=== PATIENT | male | born 1980 | race Caucasian/White ===

== ENCOUNTER 2018-11-04 10:39 | Day surgery (SDC) | payer OTHER ==
[~2018-11-04 10:39] MED LIST: LACTATED RINGERS 1,000 ML IV SCH; LIDOCAINE 1% 20 ML VIAL (10MG/ML) FOR IV START INTRADERMA PRN
[2018-11-04 11:11] VITALS: TEMP 98.2
[2018-11-04] MEDS ORDERED: LACTATED RINGERS 1,000 ML IV ONE (11:16)
[2018-11-04] MEDS ORDERED: PROPOFOL 10 MG/ML 20 ML VIAL IV ONE (11:44)
--- NOTE | 2018-11-04 11:54 | P.GSHP ---
History of Present Illness H&P Date: 11/04/18 Chief Complaint: Hemorrhoids, family history colon cancer This is a 38-year-old male who presents today for colonoscopy. Patient history of hemorrhoids. He has a strong family history colon cancer. Past Medical History Past Medical History: GERD/Reflux Additional Past Medical History / Comment(s): past hx. hiatal hernia. History of Any Multi-Drug Resistant Organisms: None Reported Past Surgical History: Adenoidectomy, Tonsillectomy Additional Past Surgical History / Comment(s): DEVIATED SEPTUM SURG, EGD, Norbert fundoplasty 2014 Past Anesthesia/Blood Transfusion Reactions: Motion Sickness Past Psychological History: Anxiety Smoking Status: Never smoker Past Alcohol Use History: Occasional Past Drug Use History: None Reported - Past Family History Father Family Medical History: No Reported History Medications and Allergies Home Medications Medication Instructions Recorded Confirmed Type Ascorbic Acid [Vitamin C] 500 mg PO DAILY 03/08/15 11/04/18 History Cholecalciferol [Vitamin D3] 1,000 unit PO DAILY 03/08/15 11/04/18 History Multivitamin [Men's Multi-Vitamin] 1 each PO DAILY 03/08/15 10/30/18 History [place]-3 Fatty Acids/Fish Oil [Fish 1 each PO DAILY 03/08/15 11/04/18 History Oil 1,000 mg Softgel] ALPRAZolam [Xanax] 0.5 mg PO DAILY PRN 10/30/18 11/04/18 History Escitalopram [Lexapro] 10 mg PO BID 10/30/18 11/04/18 History Allergies Allergy/AdvReac Type Severity Reaction Status Date / Time ciprofloxacin AdvReac AGGRAVATED Verified 11/04/18 11:04 ACHILLES TENDON Surgical - Exam Vital Signs Temp Pulse Resp BP Pulse Ox 98.2 F 75 18 130/86 98 11/04/18 11:09 11/04/18 11:09 11/04/18 11:09 11/04/18 11:09 11/04/18 11:09 - General well developed, well nourished, no distress - Eyes PERRL - ENT normal pinna - Neck no masses - Respiratory normal expansion - Cardiovascular Rhythm: regular - Abdomen Abdomen: soft, non tender Assessment and Plan Assessment: Hemorrhoids Family history: Cancer We'll perform colonoscopy.
--- NOTE | 2018-11-04 12:09 | P.OP ---
Date of Procedure: 11/04/18 Preoperative Diagnosis: External hemorrhoids Postoperative Diagnosis: External hemorrhoids Procedure(s) Performed: Colonoscopy Anesthesia: MAC Surgeon: Rao Vivar Pathology: none sent Condition: stable Disposition: PACU Description of Procedure: PROCEDURE: The patient was placed on the endoscopy table in the lateral position. Digital rectal examination was performed which revealed external hemorrhoids. The prostate was symmetrical without nodules. Flexible colonoscope was then placed in the patient's anus and passed throughout the entire colon. The ileocecal valve was visualized. The cecum, ascending, transverse, descending and sigmoid colon were normal. The rectum was normal as well. There were no masses, polyps or diverticula noted in the entire colon.
[2018-11-04 12:18] VITALS: RESP 16
[2018-11-04 12:44] VITALS: BP 118/81; PULSE 70
== END 2018-11-04 13:00 | disposition home or self-care (01) ==
LOC: ORWHC2ENDO 10:39
PROVIDERS: ATTEND Surgery
DX: K64.4 Residual hemorrhoidal skin tags (principal); Z80.0 Family history of malignant neoplasm of digestive organs; K21.9 Gastro-esophageal reflux disease without esophagitis; F41.9 Anxiety disorder, unspecified; F32.9 Major depressive disorder, single episode, unspecified; Z79.899 Other long term (current) drug therapy; Z88.1 Allergy status to other antibiotic agents; Z90.89 Acquired absence of other organs; Z98.890 Other specified postprocedural states
CPT/HCPCS: 45378; J2704

== ENCOUNTER 2023-01-08 14:34 | Emergency (ER) | payer BC ==
--- NOTE | 2023-01-08 15:12 | ED ---
URI HPI - General Source: patient, RN notes reviewed Mode of arrival: ambulatory Limitations: no limitations <Missael Olivares - Last Filed: 01/08/23 15:11> <Janette Gill - Last Filed: 01/08/23 18:35> - General Chief Complaint: Upper Respiratory Infection Stated Complaint: covid+-sore throat Time Seen by Provider: 01/08/23 15:11 - History of Present Illness Initial Comments: 42-year-old male presents emergency Department chief complaint cough congestion. Patient states he tested positive for COVID-19 Friday. Patient states he has productive cough, sore throat, nasal congestion. Patient states he is having increasing chest congestion in which his PCP advised him come emergency department. (Missael Olivares) 42-year-old gentleman with a history of flulike symptoms. Patient complains of a sore throat, cough and congestion. States it started 3 days ago. He tested positive for Covid at home today. Patient states he is coughing up brown sputum and has brown nasal congestion as well. Was told to come to the emergency room by the PCP. He denies any chest pain or shortness breath. Denies any vomiting, diarrhea and has had intermittent fever. He is a nonsmoker. (Janette Gill) - Related Data Home Medications Medication Instructions Recorded Confirmed Ascorbic Acid [Vitamin C] 500 mg PO DAILY 03/08/15 11/04/18 Cholecalciferol [Vitamin D3] 1,000 unit PO DAILY 03/08/15 11/04/18 Multivitamin [Men's Multi-Vitamin] 1 each PO DAILY 03/08/15 10/30/18 [place]-3 Fatty Acids/Fish Oil [Fish 1 each PO DAILY 03/08/15 11/04/18 Oil 1,000 mg Softgel] ALPRAZolam [Xanax] 0.5 mg PO DAILY PRN 10/30/18 11/04/18 Escitalopram [Lexapro] 10 mg PO BID 10/30/18 11/04/18 Previous Rx's Medication Instructions Recorded Nirmatrelvir/Ritonavir [Paxlovid See Rx Instructions .ROUTE 01/08/23 2X150 mg-100 mg (Eua)] .COMPLEX #30 tab Phenol/Glycerin [Chloraseptic Max 2 sprays MUCOUS MEM Q4H PRN #118 ml 01/08/23 1.5-33% [place]] Allergies Allergy/AdvReac Type Severity Reaction Status Date / Time ciprofloxacin AdvReac AGGRAVATED Verified 11/04/18 11:04 ACHILLES TENDON Review of Systems ROS Other: All systems not noted in ROS Statement are negative. <Missael Olivares - Last Filed: 01/08/23 15:11> ROS Other: All systems not noted in ROS Statement are negative. <Janette Gill - Last Filed: 01/08/23 18:35> ROS Statement: Those systems with pertinent positive or pertinent negative responses have been documented in the HPI. Past Medical History Past Medical History: GERD/Reflux Additional Past Medical History / Comment(s): past hx. hiatal hernia. History of Any Multi-Drug Resistant Organisms: None Reported Past Surgical History: Adenoidectomy, Tonsillectomy Additional Past Surgical History / Comment(s): DEVIATED SEPTUM SURG, EGD, Norbert fundoplasty 2014 Past Anesthesia/Blood Transfusion Reactions: Motion Sickness Past Psychological History: Anxiety Past Alcohol Use History: Occasional Past Drug Use History: None Reported - Past Family History Father Family Medical History: No Reported History <EliseMissael Calix - Last Filed: 01/08/23 15:11> General Exam Limitations: no limitations <TerencemelvinMissael Calix - Last Filed: 01/08/23 15:11> Head exam: Present: atraumatic Eye exam: Present: normal appearance Pupils: Present: normal accommodation ENT exam: Present: mucous membranes moist, other (Mild fluid behind the TM, eustachian tube dysfunction. No significant erythema. Posterior pharynx erythema without any tonsillar swelling or exudates. No muffled speech or drooling. No sublingual swelling.) Neck exam: Present: normal inspection, other (No nuchal rigidity) Respiratory exam: Present: normal lung sounds bilaterally Cardiovascular Exam: Present: regular rate, normal rhythm Extremities exam: Present: full ROM Back exam: Present: full ROM Neurological exam: Present: alert, oriented X3, CN II-XII intact Psychiatric exam: Present: normal affect, normal mood Skin exam: Present: warm, dry <Janette Gill - Last Filed: 01/08/23 18:35> - General Exam Comments Initial Comments: Visual Physical Exam Vital signs reviewed General: Well-appearing, nontoxic, no acute distress. Head: Normocephalic, atraumatic Eyes: PERRLA, EOMI ENT: Airway patent Chest: Nonlabored breathing Skin: No visual rash, normal skin tone Neuro: Alert and oriented 3 Musculoskeletal: No gross abnormalities (Missael Olivares) Course <Janette Gill - Last Filed: 01/08/23 18:35> Vital Signs 01/08/23 14:44 Temperature 98.2 F Pulse Rate 72 Respiratory 20 Rate Blood Pressure 132/83 O2 Sat by Pulse 97 Oximetry - Reevaluation(s) Reevaluation #1: 01/08/23 18:21 The patient's well appearing in the emergency room. He is nontoxic appearing. He is in no respiratory distress and he is tolerating his secretions without limitations. Patient was given Decadron for the pain and inflammation of the throat. Discussed using a Chloraseptic states right to help alleviate the discomfort as well. Patient was counseled on the use of antivirals. After much thought he has decided to try the antivirals. Patient understands he is to continue Motrin and Tylenol for fever control and pain. He is to increase rest and hydration. (Janette Gill) Medical Decision Making <Missael Olivares - Last Filed: 01/08/23 15:11> - Radiology Data Radiology results: report reviewed, image reviewed <Janette Gill - Last Filed: 01/08/23 18:35> - Medical Decision Making I completed the quick note portion of this chart signed Missael Olivares PA-C (Missael Olivares) Was pt. sent in by a medical professional or institution ([facility]ATU[facility] Manrique, RESEARCH SCIENTIST, urgent care, hospital, or fdc...) When possible be specific @ -[No] Did you speak to anyone other than the patient for history (EMS, parent, family, police, friend...)? What history was obtained from this source @ -[No] Did you review nursing and triage notes (agree or disagree)? Why? @ -[I reviewed and agree with nursing and triage notes] Were old charts reviewed (outside hosp., previous admission, EMS record, old EKG, old radiological studies, urgent care reports/EKG's, fdc records)? Report findings @ -[No old charts were reviewed] Differential Diagnosis (chest pain, altered mental status, abdominal pain women, abdominal pain men, vaginal bleeding, weakness, fever, dyspnea, syncope, headache, dizziness, GI bleed, back pain, seizure, CVA, palpatations, mental health, musculoskeletal)? @ -COVID-19, strep throat, pneumonia EKG interpreted by me (3pts min.). @ -[As above] X-rays interpreted by me (1pt min.). @ -Chest x-ray is negative for any pneumonia, pneumothorax, cardiomegaly or other acute changes. CT interpreted by me (1pt min.). @ -[None done] U/S interpreted by me (1pt. min.). @ -[None done] What testing was considered but not performed or refused? (CT, X-rays, U/S, labs)? Why? @ -Patient had aspirin at home Covid test that was positive therefore was not redone today. What meds were considered but not given or refused? Why? @ -[None] Did you discuss the management of the patient with other professionals (professionals i.e. , PA, RESEARCH SCIENTIST, lab, RT, psych nurse, health care social worker, j2ee application developer, teacher, public records officer, correctional case manager)? Give summary @ -[No] Was smoking cessation discussed for >3mins.? @ -[No] Was critical care preformed (if so, how long)? @ -[No] Were there social determinants of health that impacted care today? How? (Homelessness, low income, unemployed, alcoholism, drug addiction, transportation, low edu. Level, literacy, decrease access to med. care, long-term, rehab)? @ -[No] Was there de-escalation of care discussed even if they declined (Discuss DNR or withdrawal of care, Hospice)? DNR status @ -[No] What co-morbidities impacted this encounter? (DM, HTN, Smoking, COPD, CAD, Cancer, CVA, ARF, Chemo, Hep., AIDS, mental health diagnosis, sleep apnea, morbid obesity)? @ -[None] Was patient admitted / discharged? Hospital course, mention meds given and route, prescriptions, significant lab abnormalities, going to OR and other pertinent info. @ -Patient is in no respiratory distress. His vital signs are stable. He is not hypoxic. Patient may continue outpatient treatment of the COVID-19 at home and may follow up with his primary care physician at home. He does however understand signs to return to the emergency room. Patient is requesting a prescription for Paxlovid He does understand the risk with side effects and has read up on the information regarding this and continues to wish to have the prescription. Undiagnosed new problem with uncertain prognosis? @ -[No] Drug Therapy requiring intensive monitoring for toxicity (Heparin, Nitro, Insulin, Cardizem)? @ -[No] Were any procedures done? @ -[No] Diagnosis/symptom? @ -COVID-19, viral pharyngitis Acute, or Chronic, or Acute on Chronic? @ -Acute Uncomplicated (without systemic symptoms) or Complicated (systemic symptoms)? @ -Uncomplicated Side effects of treatment? @ -[No] Exacerbation, Progression, or Severe Exacerbation? @ -[No] Poses a threat to life or bodily function? How? (Chest pain, [place], [place], pneumonia, PE, COPD, DKA, ARF, appy, cholecystitis, CVA, Diverticulitis, Homicidal, Suicidal, threat to staff... and all critical care pts) @ -[No] (Janette Gill) - Lab Data Lab Results 01/08/23 Range/Units 16:46 Group A Strep (PCR) NOT DETECTED (Not Detectd) Disposition <Missael Olivares - Last Filed: 01/08/23 15:11> Is patient prescribed a controlled substance at d/c from ED?: No If prescribed controlled substance>3 days was MAPS reviewed?: No Time of Disposition: 18:35 <Janette Gill - Last Filed: 01/08/23 18:35> Clinical Impression: COVID-19, Viral pharyngitis Disposition: HOME SELF-CARE Condition: Good Instructions (If sedation given, give patient instructions): COVID-19 (Coronavirus Disease 2019) (ED), How To Wash Your Hands (ED), Coronavirus Disease 2019 (COVID-19), Pharyngitis (ED) Referrals: John Bardales, [Primary Care Provider] - 1-2 days
[2023-01-08 15:14] VITALS: BP 132/83; PULSE 72; RESP 20; TEMP 98.2
--- NOTE | 2023-01-08 16:18 | XR ---
EXAMINATION TYPE: XR chest 2V DATE OF EXAM: 01/08/2023 COMPARISON: NONE HISTORY: Cough and sore throat. TECHNIQUE: Frontal and lateral views of the chest are obtained. FINDINGS: There is no focal air space opacity, pleural effusion, or pneumothorax seen. The cardiac silhouette size is within normal limits. There is a small calcified granuloma within the right midlun g. The osseous structures are intact. IMPRESSION: No acute cardiopulmonary process.
[2023-01-08] MEDS ORDERED: DEXAMETHASONE SOD PHOSPHATE 10 MG/ML 1 ML VIAL IM STA (16:32)
== END 2023-01-08 20:09 | disposition home or self-care (01) ==
LOC: EC 14:34
DX: U07.1 COVID-19 (principal); Z86.59 Personal history of other mental and behavioral disorders
CPT/HCPCS: 87651; 71046; 99283; 96372; J1100